=== PATIENT | male | born 1995 | race Caucasian/White ===

== ENCOUNTER 2019-01-18 08:37 | Emergency (ER) | payer BC ==
[2019-01-18] MEDS ORDERED: KETOROLAC 30 MG/ML INJ ONE (09:25)
[2019-01-18] MEDS ORDERED: ONDANSETRON 4 MG (ODT) TAB ONE (09:25)
--- NOTE | 2019-01-18 09:43 | ER ---
Nurse's Notes [facility] Name: Kiel Govea Age: 23 yrs Sex: Male : 1995 Arrival Date: 01/18/2019 Time: 08:40 Bed 7 Private MD: Diagnosis: Streptococcal pharyngitis;Vomiting, unspecified Presentation: 01/18 08:44 Presenting complaint: Patient states: i started having this abdominal cramps yesterday and i broke a fever of 101.3, went to a hospital in [place] and had blood works but it didn't show anything, now the pain is getting worse; reports N/V; reports diarrhea;. Transition of care: patient was not received from another setting of care. Onset of symptoms was January 18, 2019. Risk Assessment: Do you want to hurt yourself or someone else? Patient reports no desire to harm self or others. Initial Sepsis Screen: Does the patient meet any 2 criteria? No. Patient's initial sepsis screen is negative. Does the patient have a suspected source of infection? No. Patient's initial sepsis screen is negative. Care prior to arrival: None. 08:44 Method Of Arrival: Ambulatory 08:44 Acuity: NIKI 3 hj Triage Assessment: 08:46 General: Appears in no apparent distress. uncomfortable, Behavior is calm, cooperative, hj appropriate for age. Pain: Complains of pain in back and abdomen. GI: Reports diarrhea, nausea, vomiting. Historical: - Allergies: 08:46 No Known Allergies; hj - Home Meds: 08:46 None [Active]; hj - PMHx: 08:46 None; hj - PSHx: 08:46 None; hj - Immunization history:: Adult Immunizations not up to date. - Social history:: Smoking status: Patient uses tobacco products, Patient uses alcohol. - Ebola Screening: : Patient negative for fever greater than or equal to 101.5 degrees Fahrenheit, and additional compatible Ebola Virus Disease symptoms Patient denies exposure to infectious person Patient denies travel to an Ebola-affected area in the 21 days before illness onset. Screenin:46 Abuse screen: Denies threats or abuse. Denies injuries from another. Nutritional hj screening: No deficits noted. Tuberculosis screening: No symptoms or risk factors identified. Fall Risk None identified. Assessment: 08:47 GI: Bowel sounds present X 4 quads. hj 09:57 Reassessment: D/C ON HOLD FOR SHOT TIME. bp 10:08 Reassessment: PT D/C HOME AMBULATORY, DX WITH STREP THROAT. bp Vital Signs: 08:47 BP 135 / 73; Pulse 93; Resp 18; Temp 99.2(TE); Pulse Ox 95% on R/A; Weight 111.13 kg; bp Height 6 ft. 0 in. (182.88 cm); Pain 7/10; 09:58 BP 140 / 86; Pulse 87; Resp 16; Temp 99.1; Pulse Ox 94% ; bp 08:47 Body Mass Index 33.23 (111.13 kg, 182.88 cm) bp ED Course: 08:40 Patient arrived in ED. as 08:42 Eric Nayak, NICKIE is Primary Nurse. bp 08:43 Christina Dewitt FNP-C is PHCP. snw 08:43 Keshawn Hernandez MD is Attending Physician. snw 08:46 Triage completed. hj 08:46 Arm band placed on right wrist. hj 08:47 Patient has correct armband on for positive identification. Placed in gown. Bed in low hj position. Call light in reach. Side rails up X 1. 09:58 No provider procedures requiring assistance completed. Patient did not have IV access bp during this emergency room visit. Administered Medications: 09:10 Drug: Zofran 4 mg Route: PO; bp 09:47 Follow up: Response: Nausea is decreased bp 09:10 Drug: TORadol 30 mg Route: IM; Site: right deltoid; bp 09:47 Follow up: Response: Pain is decreased bp 09:57 Drug: Bicillin L-A 2.4 million units Route: IM; Site: right gluteus; bp 10:08 Follow up: Response: No adverse reaction bp Outcome: 09:42 Discharge ordered by MD. snw 10:08 Discharged to home ambulatory, with family. bp 10:08 Condition: stable 10:08 Discharge instructions given to patient, Instructed on discharge instructions, follow up and referral plans. Demonstrated understanding of instructions, follow-up care. 10:09 Patient left the ED. bp Signatures: Christina Dewitt FNP-C DIE INSPECTOR-Roxy Ross Henry, RN Eric Wolfe RN RN bp Corrections: (The following items were deleted from the chart) 08:49 08:47 Pulse 93bpm; Resp 18bpm; Pulse Ox 95% RA; Temp 99.2F Temporal; 111.13 kg; Height bp 6 ft. 0 in.; BMI: 33.2; Pain 7/10; xin
--- NOTE | 2019-01-18 09:44 | EDPHYS ---
Physician Documentation [facility] Name: Kiel Govea Age: 23 yrs Sex: Male : 1995 Arrival Date: 01/18/2019 Time: 08:40 Bed 7 Private MD: ED Physician Keshawn Hernandez HPI: 01/18 09:17 This 23 yrs old Male presents to ER via Ambulatory with complaints of snw Abdominal Cramping, Fever, Nausea. 09:18 The patient presents with abdominal pain that is diffuse. Onset: The symptoms/episode snw began/occurred gradually, 2 day(s) ago, and became persistent. The symptoms do not radiate. Associated signs and symptoms: Pertinent positives: nausea, vomiting, and diarrhea, fever. The symptoms are described as crampy. Severity of pain: At its worst the pain was moderate in the emergency department the pain is unchanged. It is unknown whether or not the patient has had similar symptoms in the past. The patient has been recently seen by a physician: [facility] yest, Labs WNL dx with stomach virus and given Zofran. Pt did not tile picker RX. Historical: - Allergies: 08:46 No Known Allergies; hj - Home Meds: 08:46 None [Active]; hj - PMHx: 08:46 None; hj - PSHx: 08:46 None; hj - Immunization history:: Adult Immunizations not up to date. - Social history:: Smoking status: Patient uses tobacco products, Patient uses alcohol. - Ebola Screening: : Patient negative for fever greater than or equal to 101.5 degrees Fahrenheit, and additional compatible Ebola Virus Disease symptoms Patient denies exposure to infectious person Patient denies travel to an Ebola-affected area in the 21 days before illness onset. ROS: 09:17 Eyes: Negative for injury, pain, redness, and discharge, ENT: Negative for injury, snw pain, and discharge, Neck: Negative for injury, pain, and swelling, Cardiovascular: Negative for chest pain, palpitations, and edema, Respiratory: Negative for shortness of breath, cough, wheezing, and pleuritic chest pain. 09:17 Back: Negative for injury and pain, : Negative for injury, bleeding, discharge, and swelling, MS/Extremity: Negative for injury and deformity, Skin: Negative for injury, rash, and discoloration, Neuro: Negative for headache, weakness, numbness, tingling, and seizure. 09:17 Constitutional: Positive for fever, malaise, poor PO intake. 09:17 Abdomen/GI: Positive for abdominal pain, nausea, vomiting, and diarrhea. Exam: 09:17 Constitutional: This is a well developed, well nourished patient who is awake, alert, snw and in no acute distress. Head/Face: Normocephalic, atraumatic. Eyes: Pupils equal round and reactive to light, extra-ocular motions intact. Lids and lashes normal. Conjunctiva and sclera are non-icteric and not injected. Cornea within normal limits. Periorbital areas with no swelling, redness, or edema. ENT: Nares patent. No nasal discharge, no septal abnormalities noted. Tympanic membranes are normal and external auditory canals are clear. Oropharynx with no redness, swelling, or masses, exudates, or evidence of obstruction, uvula midline. Mucous membranes moist. Neck: Trachea midline, no thyromegaly or masses palpated, and no cervical lymphadenopathy. Supple, full range of motion without nuchal rigidity, or vertebral point tenderness. No Meningismus. Chest/axilla: Normal chest wall appearance and motion. Nontender with no deformity. No lesions are appreciated. Cardiovascular: Regular rate and rhythm with a normal S1 and S2. No gallops, murmurs, or rubs. Normal PMI, no JVD. No pulse deficits. Respiratory: Lungs have equal breath sounds bilaterally, clear to auscultation and percussion. No rales, rhonchi or wheezes noted. No increased work of breathing, no retractions or nasal flaring. 09:17 Back: No spinal tenderness. No costovertebral tenderness. Full range of motion. Skin: Warm, dry with normal turgor. Normal color with no rashes, no lesions, and no evidence of cellulitis. MS/ Extremity: Pulses equal, no cyanosis. Neurovascular intact. Full, normal range of motion. Neuro: Awake and alert, GCS 15, oriented to person, place, time, and situation. Cranial nerves II-XII grossly intact. Motor strength 5/5 in all extremities. Sensory grossly intact. Cerebellar exam normal. Normal gait. 09:17 Abdomen/GI: Inspection: obese Bowel sounds: normal, Palpation: mild abdominal tenderness, moderate abdominal tenderness, in all quadrants. Vital Signs: 08:47 BP 135 / 73; Pulse 93; Resp 18; Temp 99.2(TE); Pulse Ox 95% on R/A; Weight 111.13 kg; bp Height 6 ft. 0 in. (182.88 cm); Pain 7/10; 09:58 BP 140 / 86; Pulse 87; Resp 16; Temp 99.1; Pulse Ox 94% ; bp 08:47 Body Mass Index 33.23 (111.13 kg, 182.88 cm) bp MDM: 08:52 Patient medically screened. snw 09:43 Data reviewed: vital signs, nurses notes. Data interpreted: Pulse oximetry: on room air snw is 95 %. Interpretation: acceptable. Counseling: I had a detailed discussion with the patient and/or guardian regarding: the historical points, exam findings, and any diagnostic results supporting the discharge/admit diagnosis, the presence of at least one elevated blood pressure reading (>120/80) during this emergency department visit, lab results, the need for outpatient follow up, to return to the emergency department if symptoms worsen or persist or if there are any questions or concerns that arise at home. Special discussion: Based on the patient's Hx, exam, and Dx evaluation, there is no indication for emergent surgery or inpatient Tx. It is understood by the patient/guardian that if the Sx's persist or worsen they need to return immediately for re-evaluation. Based on the history and exam findings, there is no indication for further emergent testing or inpatient evaluation. I discussed with the patient/guardian the need to see the primary care provider for further evaluation of the symptoms. 01/18 09:00 Order name: Strep; Complete Time: 09:41 snw Administered Medications: 09:10 Drug: Zofran 4 mg Route: PO; bp 09:47 Follow up: Response: Nausea is decreased bp 09:10 Drug: TORadol 30 mg Route: IM; Site: right deltoid; bp 09:47 Follow up: Response: Pain is decreased bp 09:57 Drug: Bicillin L-A 2.4 million units Route: IM; Site: right gluteus; bp 10:08 Follow up: Response: No adverse reaction bp Disposition: 10:57 Co-signature as Attending Physician, Keshawn Hernandez MD I agree with the assessment and kdr plan of care. Disposition: 01/18/19 09:42 Discharged to Home. Impression: Streptococcal pharyngitis, Vomiting, unspecified. - Condition is Stable. - Discharge Instructions: Strep Throat, Rehydration, Adult. - Work release form, Medication Reconciliation Form, Thank You Letter, Antibiotic Education, Prescription Opioid Use form. - Follow up: Emergency Department; When: As needed; Reason: Worsening of condition. Follow up: Private Physician; When: 1 week; Reason: Recheck today's complaints, Continuance of care, Re-evaluation by your physician. Signatures: Dispatcher [employer] EDMS Keshawn Hernandez MD MD kdr Therrien, Shelly, ADMINISTRATIVE SERVICES ASSISTANT-C ADMINISTRATIVE SERVICES ASSISTANT-Csnw Giovani Guerrero, RN RN Eric Guillen RN RN bp Corrections: (The following items were deleted from the chart) 10:09 09:42 01/18/2019 09:42 Discharged to Home. Impression: Streptococcal pharyngitis; bp Vomiting, unspecified. Condition is Stable. Forms are Medication Reconciliation Form, Thank You Letter, Antibiotic Education, Prescription Opioid Use. Follow up: Emergency Department; When: As needed; Reason: Worsening of condition. Follow up: Private Physician; When: 1 week; Reason: Recheck today's complaints, Continuance of care, Re-evaluation by your physician. snw
[2019-01-18] MEDS ORDERED: PEN G BENZ LA 2.4 MU/4 ML SYRINGE IM ONE (10:09)
[2019-01-18 10:23] VITALS: BP 140/86; TEMP 99.1; O2SAT 94
== END 2019-01-18 10:09 | disposition home or self-care (01) ==
LOC: ER 08:37
DX: J02.0 Streptococcal pharyngitis (principal); Z72.0 Tobacco use
CPT/HCPCS: 87081; 96372; 99283; J0561

== ENCOUNTER 2022-10-22 00:24 | Emergency (ER) | payer BC ==
--- OUTSIDE RECORDS SUMMARY | 2022-10-22 00:28 | XMS REPORT | Continuity of Care Document ---
:1995 Author Organization [facility] t Address [address] [place] [address] [place] [id number] Care Team Providers Name Role Phone PCP, PATIENT DOES NOT HAVE A Primary Care Physician Unavaila getachew De León Attending Clinician Unavailable Ny Cornell Attending Clinician [phone] Znehaa_S Attending Clinician Unavailable VICTORIA SOLIS Attending Clinician Unavailable Victoria Randolph Attending Clinician Renae Ya Attending Clinician Cole_Ysabel Attending Clinician Unavailable Genet Admitting Clinician Unavailable Zuniga_S Admitting Clinician Unavailable VICTORIA SOLIS Admitting Clinician Unavailable Kocresenciola_A Admitting Clinician Unavailable Payers Payer Name Policy Type Policy Number Effective Date Expiration Date S joanie [place] [id number] 2020 00:00:00 [place] DEIDRE/ BEHZAD 93 [facility] [id number] 2020 00:00:00 Problems Condition Condition Condition Status Onset Resolution Last Treating Co mments Source Name Details Category Date Date Treatment Clinician Date Pain of Pain of Problem Active [facility] right Right 8-22 Orthope shoulder Shoulder 00:00: dic joint Joint 00 Sports Medicin e Pain of Pain of Problem Active [place] right Right 8-15 da shoulder Shoulder 00:00: Medica l joint Joint 00 Group No known No known Disease Unive rs active active ity of problems problems [facility] Allergies, Adverse Reactions, Alerts Allergy Allergy Status Severity Reaction(s) Onset Inactive Treating Comm ents Source Name Type Date Date Clinician NO KNOWN Drug Active Univers ALLERGIE Class ity of S [facility] Social History Social Habit Start Date Stop Date Quantity Comments Source Exposure to Not sure [facility] SARS-CoV-2 (event) [facility] Sex Assigned At [birth year] [facility] 00:00:00 00:00:00 [facility] Branch Smoking Status Start Date Stop Date Source Former Smoker [facility] Never Smoker [facility] Unknown if ever smoked [facility] Medications Ordered Filled Start Stop Current Ordering Indication Dosage Frequency Signature Comments Components Source Medication Medication Date Date Medication? Clinician (SIG) Name Name dexamethaso dexamethaso No dexamethas [place] ne sodium ne sodium 8-15 one sodium da phosphate phosphate 10:42: phosphate Medical 10 mg/mL 10 mg/mL 00 10 mg/mL Xavier up injection injection injection solutionTak solutionTak solutionTa e 1 mL by e 1 mL by ke 1 mL by injection injection injection route. route. route. methylpredn methylpredn No methylpred [place] isolone isolone 8-15 nisolone da acetate 40 acetate 40 10:42: acetate 40 Medical mg/mL mg/mL 00 mg/mL Group suspension suspension suspension for for for injectionTa injectionTa injectionT ke 1 mL by ke 1 mL by mikki 1 mL injection injection by route. route. injection route. benzonatate 2020-06 Yes [id number] 100mg Take 1 Univers 100 mg 2-21 capsule by ity of capsule 00:00: mouth 3 [place] 00 (three) Medical times Branch daily as needed for Cough. oseltamivir 2020-06- No [id number] 75mg Take 1 Univers 75 mg 2-12 06- capsule by ity of capsule 00:00: 05:59 mouth 2 [place] 00 :00 (two) Medical times Branch daily for 5 days. acetaminoph 2020-06- No 1{tbl} 1 tablet, Univers en-codeine 0-26 10-26 Oral, ity of (TYLENOL 01:00: 00:47 ONCE, 1 [place] #3) 300-30 00 :00 dose, On Medic al mg tablet 1 Mon Branch tablet 04/16/21 at 1999, RANDY azithromyci 2020-06 Yes [id number] Take 500 Univers n 250 mg 0-25 mg day 1, ity of tablet 00:00: then 250 [place] 00 mg days 2 Medical to 5. Branch albuterol 2020-06 Yes [id number] 2{puff} Inhale 2 Univers 90 0-25 Puffs ity of mcg/actuati 00:00: every 4 Oswaldo as on inhaler 00 (four) Medical hours as Branch needed for Wheezing or Shortness of Breath. azithromyci 2020-06 Yes [id number] Take 500 Univers n 250 mg 0-25 mg day 1, ity of tablet 00:00: then 250 [place] 00 mg days 2 Medical to 5. Branch albuterol 2020-06 Yes [id number] 2{puff} Inhale 2 Univers 90 0-25 Puffs ity of mcg/actuati 00:00: every 4 Oswaldo as on inhaler 00 (four) Medical hours as Branch needed for Wheezing or Shortness of Breath. acetaminoph 2020-06- No [id number] 1{tbl} Take 1 U nivers en-codeine 0-25 11-02 tablet by ity of 300-30 mg 00:00: 04:59 mouth [place] tablet 00 :00 every 6 Medical (six) Branch hours as needed for Pain (scale 7-10) for up to 7 days. Indication s: acute pain loperamide 2020- No 4mg 4 mg, Unive rs (IMODIUM -12 07-12 Oral, ONCE ity of A-D) 18:45: 17:44 NOW, 1 [place] capsule 4 00 :00 dose, Mon Medic al mg 01/01/21 at Branch 1345, RANDY NaCl 0.9% 2020- No 2000mL at 999 Uni vers (NS) bolus 01-01 07-12 mL/hr, ity of infusion 16:45: 19:52 2,000 mL, Oswaldo as 2,000 mL 00 :00 IV Medical Infusion, Branch ONCE, 1 dose, 01/01/21 at 1145, RANDY dicyclomine 2020-0 Yes [id number] 20mg Take 1 Univers 20 mg 7-12 tablet by ity of tablet 00:00: mouth 4 [place] 00 (four) Medical times Branch daily as needed for Abdominal pain. ondansetron 0 Yes [id number] 4mg Take 1 Univers (ZOFRAN 7-12 tablet by ity of ODT) 4 mg 00:00: mouth [place] disintegrat 00 every 8 Medic al ing tablet (eight) Branch hours as needed for Nausea and Vomiting (N/V). dicyclomine 0 Yes [id number] 20mg Take 1 Univers 20 mg 7-12 tablet by ity of tablet 00:00: mouth 4 [place] 00 (four) Medical times Branch daily as needed for Abdominal pain. ondansetron 0 Yes [id number] 4mg Take 1 Univers (ZOFRAN 7-12 tablet by ity of ODT) 4 mg 00:00: mouth [place] disintegrat 00 every 8 Medic al ing tablet (eight) Branch hours as needed for Nausea and Vomiting (N/V). dicyclomine 0 Yes [id number] 20mg Take 1 Univers 20 mg 7-12 tablet by ity of tablet 00:00: mouth 4 [place] 00 (four) Medical times Branch daily as needed for Abdominal pain. ondansetron 2020-0 Yes [id number] 4mg Take 1 Univers (ZOFRAN 7-12 tablet by ity of ODT) 4 mg 00:00: mouth [place] disintegrat 00 every 8 Medic al ing tablet (eight) Branch hours as needed for Nausea and Vomiting (N/V). cyclobenzap cyclobenzap No 1 TID cyclobenza [place] rine 10 mg rine 10 mg kamilah 10 da tablet Take tablet Take mg tablet Medical 1 tablet 3 1 tablet 3 Take 1 G roup times a day times a day tablet 3 by oral by oral times a route as route as day by needed. needed. oral route as needed. dexamethaso dexamethaso No 1mL dexamethas [place] ne sodium ne sodium one sodium da phosphate phosphate phosphate Medical 10 mg/mL 10 mg/mL 10 mg/mL Xavier up injection injection injection solution solution solution Take 1 mL Take 1 mL Take 1 mL by by by injection injection injection route. route. route. diclofenac diclofenac No 1 BID diclofenac [place] sodium 75 sodium 75 sodium 75 da mg mg mg Medical tablet,randal tablet,randal tablet,del Group yed release yed release ayed Take 1 Take 1 release tablet tablet Take 1 twice a day twice a day tablet by oral by oral twice a route for route for day by 10 days. 10 days. oral route for 10 days. lisinopril lisinopril No 2 Q1D lisinopril [place] 5 mg tablet 5 mg tablet 5 mg d a Take 2 Take 2 tablet Medical tablets tablets Take 2 Group every day every day tablets by oral by oral every day route. route. by oral route. metformin metformin No 1 BID metformin [place] 500 mg 500 mg 500 mg da tablet Take tablet Take tablet Medical 1 tablet 1 tablet Take 1 Group twice a day twice a day tablet by oral by oral twice a route. route. day by oral route. methylpredn methylpredn No 1mL methylpred [place] isolone isolone nisolone da acetate 40 acetate 40 acetate 40 Medical mg/mL mg/mL mg/mL Group suspension suspension suspension for for for injection injection injection Take 1 mL Take 1 mL Take 1 mL by by by injection injection injection route. route. route. tramadol 50 tramadol 50 No 1 Q6H tramadol [place] mg tablet mg tablet 50 mg da Take 1 Take 1 tablet Medical tablet tablet Take 1 Group every 6 every 6 tablet hours by hours by every 6 oral route oral route hours by as needed. as needed. oral route as needed. cyclobenzap cyclobenzap No cyclobenza [facility]yla rine 10 mg rine 10 mg kamilah 10 Orthope tablet tablet mg tablet dic Sports Medicin e diclofenac diclofenac No diclofenac Twyla sodium 75 sodium 75 sodium 75 Orthope mg mg mg dic tablet,randal tablet,randal tablet,del Sports yed release yed release ayed M edicin release e tramadol 50 tramadol 50 No tramadol Twyla mg tablet mg tablet 50 mg Orth ope tablet dic Sports Medicin e Immunizations Ordered Filled Immunization Date Status Comments Sourc e Immunization Name Name DT 1996-03-29 Completed University of 00:00:00 [facility] Hep B, Adol or Pedi 1996-03-29 Completed Unive rsity of Dosage 00:00:00 [facility] Polio (IPV/OPV) 1996-03-29 Completed Universit y of 00:00:00 [facility] DTAP 1996-03-29 Completed University of 00:00:00 [facility] Hep B, Adol or Pedi 1996-03-29 Completed Unive rsity of Dosage 00:00:00 [facility] Polio (IPV/OPV) 1996-03-29 Completed Universit y of 00:00:00 [facility] DTAP 1996-03-29 Completed University of 00:00:00 [facility] Hep B, Adol or Pedi 1996-03-29 Completed Unive rsity of Dosage 00:00:00 [facility] Polio (IPV/OPV) 1996-03-29 Completed Universit y of 00:00:00 [facility] DTP 1994-09-19 Completed University of 00:00:00 [facility] Hep B, Adol or Pedi 1994-09-19 Completed Unive rsity of Dosage 00:00:00 [facility] HIB 4 Dose Schedule 1994-09-19 Completed Unive rsity of 00:00:00 [facility] Polio (IPV/OPV) 1994-09-19 Completed Universit y of 00:00:00 [facility] DTP 1994-09-19 Completed University of 00:00:00 [facility] Hep B, Adol or Pedi 1994-09-19 Completed Unive rsity of Dosage 00:00:00 [facility] HIB 4 Dose Schedule 1994-09-19 Completed Unive rsity of 00:00:00 [facility] Polio (IPV/OPV) 1994-09-19 Completed Universit y of 00:00:00 [facility] DTP 1994-09-19 Completed University of 00:00:00 [facility] Hep B, Adol or Pedi 1994-09-19 Completed Unive rsity of Dosage 00:00:00 [facility] HIB 4 Dose Schedule 1994-09-19 Completed Unive rsity of 00:00:00 [facility] Polio (IPV/OPV) 1994-09-19 Completed Universit y of 00:00:00 [facility] PPD (TB) 1994-06-07 Completed University of 00:00:00 [facility] [place] [facility] Branch MMR 1994-06-07 Completed University of 00:00:00 [facility] PPD (TB) 1994-06-07 Completed University of 00:00:00 [facility] MMR 1994-06-07 Completed University of 00:00:00 [facility] PPD (TB) 1994-06-07 Completed University of 00:00:00 [facility] MMR 1994-06-07 Completed University of 00:00:00 [facility] DTP 1994-02-14 Completed University of 00:00:00 [facility] HIB 4 Dose Schedule 1994-02-14 Completed Unive rsity of 00:00:00 [facility] DTP 1994-02-14 Completed University of 00:00:00 [facility] HIB 4 Dose Schedule 1994-02-14 Completed Unive rsity of 00:00:00 [facility] DTP 1994-02-14 Completed University of 00:00:00 [facility] HIB 4 Dose Schedule 1994-02-14 Completed Unive rsity of 00:00:00 [facility] Polio (IPV/OPV) 1993 Completed Universit y of 00:00:00 [facility] DTP 1993 Completed University of 00:00:00 [facility] HIB 4 Dose Schedule 1993 Completed Unive rsity of 00:00:00 [facility] Polio (IPV/OPV) 1993 Completed Universit y of 00:00:00 [facility] DTP 1993 Completed University of 00:00:00 [facility] HIB 4 Dose Schedule 1993 Completed Unive rsity of 00:00:00 [facility] Polio (IPV/OPV) 1993 Completed Universit y of 00:00:00 [facility] DTP 1993 Completed University of 00:00:00 [facility] HIB 4 Dose Schedule 1993 Completed Unive rsity of 00:00:00 [facility] Hep B, Adol or Pedi 1993 Completed Unive rsity of Dosage 00:00:00 [facility] Hep B, Adol or Pedi 1993 Completed Unive rsity of Dosage 00:00:00 [facility] Hep B, Adol or Pedi 1993 Completed Unive rsity of Dosage 00:00:00 [facility] Vital Signs Vital Name Observation Time Observation Value Comments Source Height 2022-02-12 00:00:00 72 [in_i] [facility] BMI (Body Mass 2022-02-12 00:00:00 31.2 kg/m2 [facility]) Sports Medicine Body Weight 2022-02-12 00:00:00 230 [lb_av] [facility] BP Diastolic 2022-02-04 00:00:00 78 mm[Hg] [facility] Height 2022-02-04 00:00:00 72 [in_i] [facility] BMI (Body Mass 2022-02-04 00:00:00 32.4 [facility]2 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 BP Systolic 2022-02-04 00:00:00 122 mm[Hg] [facility] Body Weight 2022-02-04 00:00:00 3824 [oz_av] [facility] Systolic blood 2021-06-13 03:00:00 135 mm[Hg] Univer sity of pressure [facility] Diastolic blood 2021-06-13 03:00:00 87 mm[Hg] Unive rsity of pressure [facility] Body temperature 2021-06-13 03:00:00 37.22 Michell [facility] Respiratory rate 2021-06-13 03:00:00 19 /min Univ [facility] Oxygen saturation in 2021-06-13 03:00:00 98 /min [facility] Arterial blood by [facility] Pulse oximetry Branch Heart rate 2021-06-13 02:41:00 118 /min [facility] Body height 2021-06-13 02:41:00 182.9 cm [facility] Body weight 2021-06-13 02:41:00 102.649 kg [facility] BMI 2021-06-13 02:41:00 30.69 kg/m2 [facility] [place] [facility] Systolic blood 2021-04-16 23:35:00 147 mm[Hg] Univer sity of pressure [place] [facility] Diastolic blood 2021-04-16 23:35:00 86 mm[Hg] Unive rsity of pressure [place] [facility] Heart rate 2021-04-16 23:35:00 103 /min [facility] [place] [facility] Body temperature 2021-04-16 23:35:00 37.33 Michell [facility] [place] [facility] Respiratory rate 2021-04-16 23:35:00 18 /min Univ [facility] [place] [facility] Body height 2021-04-16 23:35:00 195.6 cm [facility] [place] [facility] Body weight 2021-04-16 23:35:00 104.327 kg [facility] [place] [facility] BMI 2021-04-16 23:35:00 27.27 kg/m2 Universi ty of [facility] Oxygen saturation in 2021-04-16 23:35:00 99 /min University of Arterial blood by [place] [employer] [facility]on Pulse oximetry Branch Systolic blood 2021-01-01 18:00:00 146 mm[Hg] Univer sity of pressure [place] [facility] Diastolic blood 2021-01-01 18:00:00 89 mm[Hg] Unive rsity of pressure [place] [facility] Heart rate 2021-01-01 18:00:00 86 /min [facility] [place] [facility] Respiratory rate 2021-01-01 18:00:00 28 /min Univ [facility] [place] [facility] [place] Oxygen saturation in 2021-01-01 18:00:00 95 /min University of Arterial blood by [place] [employer] javon Pulse oximetry Branch Body temperature 2021-01-01 16:32:05 37.17 Michell [facility] [place] [facility] Body height 2021-01-01 16:29:00 180.3 cm [facility] [place] [facility] Body weight 2021-01-01 16:29:00 107.956 kg [facility] [place] [facility] BMI 2021-01-01 16:29:00 33.19 kg/m2 [facility] [place] [facility] [place] Body Weight 2020-09-15 00:00:00 3856 [oz_av] [facility] BP Diastolic 2020-09-15 00:00:00 105 mm[Hg] [facility] Height 2020-09-15 00:00:00 72 [in_i] [facility] BMI (Body Mass 2020-09-15 00:00:00 32.7 kg/m2 [facility] 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) Group BP Systolic 2020-09-15 00:00:00 172 mm[Hg] [facility] Procedures Procedure Date / Time Performed Performing Clinician Sourc e MRI, shoulder, w/o 2022-02-12 00:00:00 Twyla Or thopedic contrast Sports Medicine XR, shoulder, 2 or 2022-02-04 00:00:00 [facility] XR CHEST 2 VW 2021-06-13 03:18:10 Victoria Solis [facility] [facility] RAPID INFLUENZA A/B 2021-06-13 03:00:00 Victoria Solis [facility] COVID-19 (ID NOW RAPID 2021-06-13 03:00:00 Victoria Solis [facility] TESTING) Medical Branch NOTICE OF PRIVACY 2021-06-13 02:26:52 Doctor Unassigned, No Univ [facility] PRACTICES Name Medical Branch CONSENT/REFUSAL FOR 2021-06-13 02:25:07 Doctor Unassigned, No [facility] [place] DIAGNOSIS AND Name Medical Branch TREATMENT COVID-19 (ID NOW RAPID 2021-04-17 01:13:00 Victoria Solis [facility] TESTING) Medical Branch XR CHEST 2 VW 2021-04-17 00:10:40 Victoria Solis [facility] XR RIBS 3 VW LEFT 2021-04-17 00:10:40 Victoria Solis [facility] NOTICE OF PRIVACY 2021-04-16 23:29:08 Doctor Unassigned, No Univ [facility] PRACTICES Name Medical Branch CONSENT/REFUSAL FOR 2021-04-16 23:28:45 Doctor Unassigned, No [facility] [place] DIAGNOSIS AND Name Medical Branch TREATMENT XR ABDOMEN ACUTE 2021-01-01 18:38:28 Renae Romero [facility] SERIES Medical Branch URINALYSIS 2021-01-01 17:09:00 Renae Romero [facility] LIPASE 2021-01-01 16:45:00 Nick [facility] HEPATIC FUNCTION PANEL 2021-01-01 16:45:00 RomeroRenae maurice [facility] ([id number]) Medical Branch (ALB,T.PRO,BILI T,BU/BC,ALT,AST,ALK PHOS) BASIC METABOLIC PANEL 2021-01-01 16:45:00 RomeroRenae maurice [facility] (NA, K, CL, CO2, Medical Branch GLUCOSE, BUN, CREATININE, CA) CBC WITH DIFF 2021-01-01 16:45:00 Renae Romero [facility] NOTICE OF PRIVACY 2021-01-01 16:19:45 Doctor Unassigned, No [facility] PRACTICES Name [facility] CONSENT/REFUSAL FOR 2021-01-01 16:17:52 Doctor Unassigned, No [facility] DIAGNOSIS AND Name Medical Branch TREATMENT Encounters Start End Encounter Admission Attending Care Care Encounter Source Date/Time Date/Time Type Type Clinicians Facility Department ID 2022-02-12 2022-02-12 Outpatient FOG_Burke_R AOSM AOSM [id number] Twyla 00:00:00 00:00:00 Matthew [id number] Ortho pe dic Sports Medicin e 2022-02-12 2022-02-12 Outpatient GENEVA Cornell AOSM [id number] 00:00:00 00:00:00 Ny H [id number] 2022-02-12 2022-02-12 Ny H AOSM [place] - Ortho Twyla 00:00:00 00:00:00 Leanne Cornell [place] PA: [id number] FOG_Ofc dic [facility] [address], Medici n [address], [place] [address] , Ph. 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 2021-06-12 2021-06-12 Emergency X [facility] ERT [id number] Univers 20:43:00 21:47:00 VICTORIA [facility] 2021-06-12 2021-06-12 Emergency [facility] [id number] Univers 20:43:00 21:47:00 Victoria HARRIS [id number] i ty of [place] [id number] [facility] [id number] [address] 2021-04-16 2021-04-16 Emergency X [facility] ERT [id number] Univers 18:37:00 22:30:00 VICTORIA [facility] 2021-04-16 2021-04-16 Emergency [facility] [id number] Univers 18:37:00 22:30:00 Victoria Harris [id number] i ty of [place] [id number] [facility] [id number] [address] 2021-01-01 2021-01-01 Emergency [facility] [id number] Univers 11:30:00 14:53:00 Renae Harris [id number] i ty of [place] [id number] [facility] [id number] [place] [address] Branch 2021-01-01 2021-01-01 Emergency X [facility] ERT [id number] Univers 11:14:00 11:14:00 ity [facility] 2020-09-15 2020-09-15 Outpatient Koudela_A [facility] [id number] [place] 08:18:00 08:18:00 [id number] [facility] 2020-09-15 2020-09-15 Outpatient Koudela_A [facility] [id number] [place] 08:18:00 08:18:00 [id number] [facility] 2020-09-15 2020-09-15 Sara [facility] [place] - [id number] M atagor 00:00:00 00:00:00 Cole Discovery da PA-C: [facility] [place] [address], [place] [address] , Ph. Results Test Description Test Time Test Comments Results Result [facility] e Comments Acute Abdomen 2020-12-21 Mildly dilated short University of Series 2 segment of small [place] dical 19:11:32 bowel without Branch transition point likelysequela of diarrhea. No bowel obstruction. Clear lungs. EXAM: XR ABDOMEN ACUTE SERIES 01/01/2021 1:25 PM COMPARISON: None available. HISTORY: subjective fever, diarrhea FINDINGS:Moderate ventilated lungs. No consolidation. No pleural effusions orpneumothorax. The cardiomediastinal silhouette is within normal limits. Nonobstructive bowel gas pattern. A loop of small bowel is gas-filled anddilated in the left hemiabdomen measuring 3.9 cm in diameter. No transitionpoint. The large bowel contains scattered gas. Phlebolith is noted in theleft hemipelvis. No acute osseous abnormality. [facility], Radiant Results Inft User - 01/01/2021 2:12 PM CDT EXAM: XR ABDOMEN ACUTE SERIES 01/01/2021 1:25 PMCOMPARISON: None available.HISTORY: subjective fever, diarrhea FINDINGS:Moderate ventilated lungs. No consolidation. No pleural effusions orpneumothorax. The cardiomediastinal silhouette is within normal limits.Nonobstructive bowel gas pattern. A loop of small bowel is gas-filled anddilated in the left hemiabdomen measuring 3.9 cm in diameter. No transitionpoint. The large bowel contains scattered gas. Phlebolith is noted in theleft hemipelvis.No acute osseous abnormality.IMPRESSIO NMildly dilated short segment of small bowel without transition point likelysequela of diarrhea. No bowel obstruction.Clear lungs. Urinalysis 2021-01-01 17:26:10 Test Item Value Reference Range Interpretation Comme nts APPEARANCE (test code = Clear Clear 2428442643) COLOR (test code = 5993431106) Yellow Yellow PH (test code = 6530746025) 4.8-8.0 SP GRAVITY (test code = 1.003-1.030 H 9620086153) GLU U QUAL (test code = 150 mg/dL Normal A 5972828068) BLOOD (test code = 5056689124) Negative Negative KETONES (test code = 1889168918) 5 mg/dL Negative A PROTEIN (test code = 2887-8) Negative Negative UROBILIN (test code = 2.0 mg/dL Normal A 3486091139) BILIRUBIN (test code = Negative Negative 6955978820) NITRITE (test code = 1210212272) Negative Negative LEUK SHANNON (test code = Negative Negative 7646115867) RBC/HPF (test code = 5500933946) See_Comment [Automated message] The system which ge nerated this result transmit rafy reference range: 0 - 3 HP F. The reference range was not used to interpret th is result as normal/abnormal . WBC/HPF (test code = 0017299466) See_Comment [Automated message] The system which [employer] nerated this result transmit rafy reference range: 0 - 5 HP F. The reference range was not used to interpret th is result as normal/abnormal . BACTERIA (test code = Negative Negative 7173392843) MUCOUS (test code = 6681112359) Slight Negative LPF A Lab Interpretation (test code = Abnormal 20380-3) [facility] (ALB, T.PRO, BILI T, BU/BC, ALT, AST, ALK PHOS)2021-01-01 17:16:40 Test Item Value Reference Range Interpretation Comments TOTAL BILI (test code = 0070903885) 0.7 mg/dL 0.1-1.1 BILI UNCON (test code = 8299870471) 0.4 mg/dL 0.1-1.1 BILI CONJ (test code = 7012455740) 0.0 mg/dL 0.0-0.3 T PROTEIN (test code = 8239778217) 8.0 g/dL 6.3-8.2 ALBUMIN (test code = 4486405860) 4.7 g/dL 3.5-5.0 ALK PHOS (test code = 5278935681) 127 U/L 34-122 H ALTv (test code = 1742-6) 122 U/L 5-50 H AST(SGOT) (test code = 1497841630) 58 U/L 13-40 H Lab Interpretation (test code = Abnormal 01626-5) [facility] Metabolic Panel (NA, K, CL, CO2, GLUCOSE, BUN, CREATININE, CA)2021-01-01 17:16:22 Test Item Value Reference Range Interpretation Comments NA (test code = 135 mmol/L 135-145 0271251247) K (test code = 3.8 mmol/L 3.5-5.0 2955387086) CL (test code = 102 mmol/L 98-108 9505007822) CO2 TOTAL (test code = 21 mmol/L 23-31 L 1460424380) AGAP (test code = 2-16 1818367659) BUN (test code = 18 mg/dL 7-23 1202856282) GLUCOSE (test code = 231 mg/dL 70-110 H 7796275004) CREATININE (test code = 0.69 mg/dL 0.60-1.25 9902072619) CALCIUM (test code = 8.8 mg/dL 8.6-10.6 1144768281) eGFR (test code = mL/min/1.73m2 1342653510) ALESSANDRA (test code = ALESSANDRA) Association of Glomerular Filtration Rate (GFR) and Staging of Kidney Disease* + --+ --+ ------+| GFR (mL/min/1.73 m2) ?| With Kidney Damage ?| ?Without Kidney Damage+ --------+ --------+ +| ?>90 ?| ?Stage one ?| ? Normal ?+ ---+ ---+ -------+| ?60-89 ?| ?Stage two ?| ? Decreased GFR ? + --+ --+ ------+| ?30-59 ?| ?Stage three ?| ? Stage three ? + --+ --+ ------+| ?15-29 ?| ?Stage four ? | ? Stage four ?+ ---+ ---+ -------+| ?<15 (or dialysis) ? ?| ?Stage five ? | ? Stage five ?+ ---+ ---+ -------+ *Each stage assumes the associated GFR level has been in effect for at least three months. ?Stages 1 to 5, with or without kidney disease, indicate chronic kidney disease. Notes: Determination of stages one and two (with eGFR >59mL/min/1.73 m2) requires estimation of kidney damage for at least three months as defined by structural or functional abnormalities of the kidney, manifested by either:Pathological abnormalities or Markers of kidney damage (including abnormalities in the composition of the blood or urine or abnormalities in imaging tests). Lab Interpretation Abnormal (test code = 73155-2) [facility] [id number]:16:22 Test Item Value Reference Range Interpretation Comments LIPASE (test code = 9274424059) 51 U/L 0-220 Lab Interpretation (test code = Normal 55320-4) [facility] [id number] 17:00:57 Test Item Value Reference Range Interpretation Comments WBC (test code = See_Comment [Automated 6019-2) message] The sy stem which generated this result transmitted reference range : 4.20 - 10.70 10*3/?L. The reference range was not used to interpret this result as normal/abnormal . RBC (test code = See_Comment [Automated 234-8) message] The sy stem which generated this result transmitted reference range : 4.26 - 5.52 10*6/?L. The reference range was not used to interpret this result as normal/abnormal . HGB (test code = 15.7 g/dL 12.2-16.4 718-7) HCT (test code = 46.4 % 38.4-49.3 4544-3) MCV (test code = 91.5 fL 81.7-95.6 787-2) MCH (test code = 31.0 pg 26.1-32.7 785-6) MCHC (test code = 33.8 g/dL 31.2-35.0 786-4) RDW-SD (test code = 41.8 fL 38.5-51.6 87106-4) RDW-CV (test code = 12.5 % 12.1-15.4 788-0) PLT (test code = See_Comment [Automated 777-3) message] The sy stem which generated this result transmitted reference range : 150 - 328 10*3/ ?L. The reference r kiara was not used to interpret this result as normal/abnormal . MPV (test code = 9.9 fL 9.8-13.0 37078-3) NRBC/100 WBC (test See_Comment [Automat ed code = 8803506962) message] The system which generated this result transmitted reference range : 0.0 - 10.0 /100 WBCs. The refer ence range was not u sed to interpret th is result as normal/abnormal . NRBC x10^3 (test code <0.01 See_Comment [Auto mated = 5505133589) message] The s ystem which generated this result transmitted reference range : 10*3/?L. The reference range was not used to interpret this result as normal/abnormal . GRAN MAT (NEUT) % 70.1 % (test code = 770-8) IMM GRAN % (test code 0.30 % = 8968218222) LYMPH % (test code = 19.6 % 736-9) MONO % (test code = 8.9 % 5905-5) EOS % (test code = 0.8 % 713-8) BASO % (test code = 0.3 % 706-2) GRAN MAT x10^3(ANC) 4.55 10*3/uL 1.99-6.95 (test code = 4330806815) IMM GRAN x10^3 (test <0.03 0.00-0.06 code = 6204492341) LYMPH x10^3 (test code 1.27 10*3/uL 1.09-3.23 = 731-0) MONO x10^3 (test code 0.58 10*3/uL 0.36-1.02 = 742-7) EOS x10^3 (test code = 0.05 10*3/uL 0.06-0.53 L 711-2) BASO x10^3 (test code <0.03 0.01-0.09 = 704-7) Lab Interpretation Abnormal (test code = 99537-8) [facility]"
[2022-10-22 01:19] LABS: Absolute Lymphocytes (CBC) 4.1 K/uL (0.7-4.9); Hematocrit 43.6 % (39.6-49.0); Lymphocytes % 54.8 % (15.3-44.8); MCV 92.7 fL (80-100); MPV 8.1 fL (7.6-11.3); RBC Red Blood Cell Count 4.71 M/uL (4.33-5.43)
[2022-10-22 01:45] LABS: Albumin 3.5 g/dL (3.4-5.0); Bilirubin Total 0.3 mg/dL (0.2-1.0); Potassium 3.7 mEq/L (3.5-5.1); Protein, Total 7.2 g/dL (6.4-8.2)
[2022-10-22 02:41] LABS: Specific Gravity > 1.030 (1.005-1.030); Urine Bilirubin NEGATIVE (Negative); Urine Blood Negative (Negative); Urine Clarity Clear (Clear); Urine Color Colorless (Yellow); Urine Glucose 4+ (Over) (Negative); Urine Protein NEGATIVE (Negative); Urine Urobilinogen Normal (Normal)
[2022-10-22] MEDS ORDERED: NA CHLORIDE 0.9% 1,000 ML ONE (03:19)
--- NOTE | 2022-10-22 03:55 | EDPHYS ---
Physician Documentation [facility] Name: Kiel Govea Age: 27 yrs Sex: Male : 1995 Arrival Date: 10/22/2022 Time: 00:24 Bed 18 Private MD: ED Physician Ryan Medina HPI: 10/22 00:53 This 27 yrs old Male presents to ER via Ambulatory with complaints of jmm Abdominal Pain. 00:53 The patient presents with abdominal pain. Onset: The symptoms/episode began/occurred jmm gradually, this morning. The symptoms do not radiate. Associated signs and symptoms: Pertinent negatives: nausea, vomiting, and diarrhea, testicular pain, vomiting. This is a 27 year old male with a history of htn, that presents to the ED with complaints of lower abdominal pain beginning this morning. Denies vomiting, diarrhea, decreased appetite. Denies regular alcohol use. . Historical: - Allergies: 00:48 No Known Allergies; kb3 - Home Meds: 00:48 None [Active]; kb3 - PMHx: 00:48 Hypertensive disorder; NIDDM; kb3 - PSHx: 00:48 None; kb3 - Immunization history:: Adult Immunizations up to date, Client reports receiving the 1st dose of the Covid vaccine, Last tetanus immunization: < 10 years ago. - Social history:: Smoking status: Patient reports the use of cigarette tobacco products, denies chronic smoking, but will smoke occasionally, Patient uses alcohol, occasionally. Patient/guardian denies using street drugs. ROS: 00:53 Constitutional: Negative for fever, chills, and weight loss, Cardiovascular: Negative jmm for chest pain, palpitations, and edema, Respiratory: Negative for shortness of breath, cough, wheezing, and pleuritic chest pain. 00:53 Abdomen/GI: Positive for abdominal pain. 00:53 All other systems are negative. Exam: 00:53 Constitutional: This is a well developed, well nourished patient who is awake, alert, jmm and in no acute distress. Head/Face: atraumatic. Eyes: EOMI, no conjunctival erythema appreciated ENT: Moist Mucus Membranes Neck: Trachea midline, Supple Chest/axilla: Normal chest wall appearance and motion. Cardiovascular: Regular rate and rhythm. No edema appreciated Respiratory: Normal respirations, no respiratory distress appreciated 00:53 Back: Normal ROM Skin: General appearance color normal MS/ Extremity: Moves all extremities, no obvious deformities appreciated, no edema noted to the lower extremities Neuro: Awake and alert Psych: Behavior is normal, Mood is normal, Patient is cooperative and pleasant 00:53 Abdomen/GI: Inspection: abdomen appears normal, Bowel sounds: normal, Palpation: soft, mild abdominal tenderness, in the right lower quadrant and left lower quadrant. Vital Signs: 00:46 BP 160 / 107; Pulse 89; Resp 18; Temp 97.8; Pulse Ox 98% ; Weight 98.43 kg; Height 6 kb3 ft. 0 in. ; Pain 7/10; 01:00 BP 137 / 81; Pulse 74; Resp 18 S; Pulse Ox 97% on R/A; ha1 02:00 BP 149 / 84; Pulse 73; Resp 15 S; Pulse Ox 96% on R/A; ha1 03:00 BP 127 / 69; Pulse 70; Resp 18 S; Pulse Ox 96% on R/A; ha1 04:00 BP 107 / 62; Pulse 72; Resp 18; Pulse Ox 96% on R/A; ha1 00:46 Body Mass Index 29.43 (98.43 kg, 182.88 cm) kb3 00:46 Pain Scale: Adult kb3 MDM: 00:[address] [facility] 00:59 Differential diagnosis: appendicitis, non-specific abd pain, pancreatitis, Prostatitis, [facility] Pyelonephritis. Data reviewed: vital signs, nurses notes, lab test result(s). 01:40 Transition of care: After a detail discussion of the patient's case, care is [facility] transferred to Ryan Medina MD. 10/22 00:53 Order name: CBC with Diff; Complete Time: 01:23 [facility] 10/22 00:53 Order name: CMP; Complete Time: 02:41 [facility] 10/22 00:53 Order name: Lipase; Complete Time: 02:41 [facility] 10/22 00:53 Order name: Urinalysis w/ reflexes; Complete Time: 02:42 [facility] 10/22 00:53 Order name: CT Abd/Pelvis - IV Contrast Only; Complete Time: 16:03 [facility] 10/22 00:53 Order name: IV Saline Lock; Complete Time: 01:15 [facility] 10/22 00:53 Order name: Labs collected and sent; Complete Time: 01:15 [facility] Administered Medications: 02:50 Drug: NS 0.9% IV 1000 ml Route: IV; Rate: 1 bolus; Site: right antecubital; ha1 04:25 Follow up: Response: No adverse reaction; IV Status: Completed infusion; IV Intake: ha1 1000ml Disposition: 04:04 Co-signature as Attending Physician, Ryan Medina MD I reviewed the patient's care rt provided by Advanced Practice Provider \T\ agree w/ the diagnosis \T\ care plan. I personally saw the pt \T\ performed a substantive portion of the visit, incldng all aspects of the (History/Exam/Medical Decision Making). PA/GANG RIDER's history reviewed, patient interviewed, and examined. HPI: Patient does report of pain with deep inspiration, reports a generalized malaise to me. My personal exam of patient reveals: No acute respiratory distress on examination I agree with assessment and care plan and confirm the diagnosis (es) above. Disposition Summary: 10/22/22 03:54 Discharge Ordered Location: Home rt Problem: new rt Symptoms: have improved rt Condition: Stable rt Diagnosis - Unspecified bacterial pneumonia rt - Type 2 diabetes mellitus with hyperglycemia rt - Other abdominal pain rt Followup: rt - With: Private Physician - When: 2 - 3 days - Reason: Discharge Instructions: - Discharge Summary Sheet rt - Abdominal Pain, Adult rt - Hyperglycemia rt - Community-Acquired Pneumonia, Adult rt Forms: - Work release form ha1 - Medication Reconciliation Form rt - Thank You Letter rt - Antibiotic Education rt - Prescription Opioid Use rt Prescriptions: - Augmentin 875-125 mg Oral Tablet - take 1 tablet by ORAL route every 12 hours for 10 days; 20 tablet; Refills: 0, rt Product Selection Permitted - Metformin 500 mg Oral Tablet - take 1 tablet by ORAL route every 12 hours take 1 tablet with morning meals AND rt evening meals; 60 tablet; Refills: 0, Product Selection Permitted Signatures: Dispatcher [employer] Amandeep Retana PA PA jmm Ayala, Heidy RN RN ha1 Marielos Estrada RN RN kb3 Ryan Medina MD MD rt
--- NOTE | 2022-10-22 03:55 | ER ---
Nurse's Notes [facility] Name: Kiel Govea Age: 27 yrs Sex: Male : 1995 Arrival Date: 10/22/2022 Time: 00:24 Bed 18 Private MD: Diagnosis: Unspecified bacterial pneumonia;Type 2 diabetes mellitus with hyperglycemia;Other abdominal pain Presentation: 10/22 00:46 Chief complaint: Patient states: bilateral flank pain that radiates into abdomen on kb3 both sides, worse on the right side, since this morning. Denies N/V/D/fever. 12/30, sharp. Coronavirus screen: Vaccine status: Patient reports receiving the 1st dose of the Covid vaccine. Client denies travel out of the [place] in the last 14 days. Ebola Screen: Patient negative for fever greater than or equal to 101.5 degrees Fahrenheit, and additional compatible Ebola Virus Disease symptoms Patient denies exposure to infectious person. Patient denies travel to an Ebola-affected area in the 21 days before illness onset. No symptoms or risks identified at this time. Initial Sepsis Screen: Does the patient meet any 2 criteria? No. Patient's initial sepsis screen is negative. Does the patient have a suspected source of infection? No. Patient's initial sepsis screen is negative. Risk Assessment: Do you want to hurt yourself or someone else? Patient reports no desire to harm self or others. Onset of symptoms was October 21, 2022 at 08:00. 00:46 Method Of Arrival: Ambulatory kb3 00:46 Acuity: NIKI 3 kb3 Triage Assessment: 00:48 General: Appears in no apparent distress. Behavior is calm, cooperative. Pain: kb3 Complains of pain in left low back and right low back Pain radiates to right lower quadrant and left lower quadrant Pain currently is 7 out of 10 on a pain scale. Quality of pain is described as sharp, Pain began 1 day ago. Is continuous. GI: Patient currently denies constipation, diarrhea, nausea, vomiting. Historical: - Allergies: 00:48 No Known Allergies; kb3 - Home Meds: 00:48 None [Active]; kb3 - PMHx: 00:48 Hypertensive disorder; NIDDM; kb3 - PSHx: 00:48 None; kb3 - Immunization history:: Adult Immunizations up to date, Client reports receiving the 1st dose of the Covid vaccine, Last tetanus immunization: < 10 years ago. - Social history:: Smoking status: Patient reports the use of cigarette tobacco products, denies chronic smoking, but will smoke occasionally, Patient uses alcohol, occasionally. Patient/guardian denies using street drugs. Screenin:40 Abuse screen: Denies threats or abuse. Denies injuries from another. Nutritional ha1 screening: No deficits noted. Tuberculosis screening: No symptoms or risk factors identified. 00:40 [facility] ED Fall Risk Assessment (Adult) History of falling in the last 3 months, ha1 including since admission No falls in past 3 months (0 pts) Confusion or Disorientation No (0 pts) Intoxicated or Sedated No (0 pts) Impaired Gait No (0 pts) Mobility Assist Device Used No (0 pt) Altered Elimination No (0 pt) Score/Fall Risk Level 0 - 2 = Low Risk Oriented to surroundings, Maintained a safe environment, Educated pt \T\ family on fall prevention, incl call for assistance when getting out of bed. Assessment: 00:47 General: Appears uncomfortable, Behavior is calm, cooperative. Pain: Complains of pain ha1 in abdomen and back flank pain. 00:47 Neuro: Level of Consciousness is awake, alert, obeys commands, Oriented to person, ha1 place, time, situation. Cardiovascular: Capillary refill < 3 seconds Patient's skin is warm and dry. Respiratory: Airway is patent Respiratory effort is even, unlabored, Respiratory pattern is regular, symmetrical. GI: Abdomen is round non-distended, Bowel sounds present X 4 quads. Abd is soft and non tender X 4 quads. Reports lower abdominal pain. Musculoskeletal: Circulation, motion, and sensation intact. Range of motion: intact in all extremities, Reports pain in right low back. 01:40 Reassessment: Patient and/or family updated on plan of care and expected duration. Pain ha1 level reassessed. Patient is alert, oriented x 3, equal unlabored respirations, skin warm/dry/pink. 02:20 Reassessment: Patient and/or family updated on plan of care and expected duration. Pain ha1 level reassessed. Patient is alert, oriented x 3, equal unlabored respirations, skin warm/dry/pink. back from CT. 03:20 Reassessment: Patient and/or family updated on plan of care and expected duration. Pain ha1 level reassessed. Patient is alert, oriented x 3, equal unlabored respirations, skin warm/dry/pink. 04:20 Reassessment: Patient and/or family updated on plan of care and expected duration. Pain ha1 level reassessed. Patient is alert, oriented x 3, equal unlabored respirations, skin warm/dry/pink. Vital Signs: 00:46 BP 160 / 107; Pulse 89; Resp 18; Temp 97.8; Pulse Ox 98% ; Weight 98.43 kg; Height 6 kb3 ft. 0 in. ; Pain 7/10; 01:00 BP 137 / 81; Pulse 74; Resp 18 S; Pulse Ox 97% on R/A; ha1 02:00 BP 149 / 84; Pulse 73; Resp 15 S; Pulse Ox 96% on R/A; ha1 03:00 BP 127 / 69; Pulse 70; Resp 18 S; Pulse Ox 96% on R/A; ha1 04:00 BP 107 / 62; Pulse 72; Resp 18; Pulse Ox 96% on R/A; ha1 00:46 Body Mass Index 29.43 (98.43 kg, 182.88 cm) kb3 00:46 Pain Scale: Adult kb3 ED Course: 00:27 Patient arrived in ED. jj6 00:29 Amandeep Cisse PA is PHCP. jmm 00:29 Ryan Medina MD is Attending Physician. jmm 00:40 Patient has correct armband on for positive identification. Placed in gown. Bed in low ha1 position. Call light in reach. Side rails up X 1. 00:48 Triage completed. kb3 00:48 Arm band placed on right wrist. kb3 00:57 Lucia Adler, NICKIE is Primary Nurse. ha1 01:10 Inserted saline lock: 20 gauge in right forearm, using aseptic technique. Blood ha1 collected. 01:15 CBC with Diff Sent. ha1 01:15 CMP Sent. ha1 01:15 Lipase Sent. ha1 01:15 Urinalysis w/ reflexes Sent. ha1 02:28 CT Abd/Pelvis - IV Contrast Only In Process Unspecified. EDMS 04:28 No provider procedures requiring assistance completed. IV discontinued, intact, ha1 bleeding controlled, No redness/swelling at site. Pressure dressing applied. Administered Medications: 02:50 Drug: NS 0.9% IV 1000 ml Route: IV; Rate: 1 bolus; Site: right antecubital; ha1 04:25 Follow up: Response: No adverse reaction; IV Status: Completed infusion; IV Intake: ha1 1000ml Medication: 04:28 VIS not applicable for this client. ha1 Intake: 04:25 IV: 1000ml; Total: 1000ml. ha1 Outcome: 03:54 Discharge ordered by . rt 04:28 Discharged to home ambulatory. ha1 04:28 Condition: stable 04:28 Discharge instructions given to patient, Instructed on discharge instructions, follow up and referral plans. medication usage, Demonstrated understanding of instructions, follow-up care, medications, Prescriptions given X 2. 04:28 Patient left the ED. ha1 Signatures: Dispatcher [employer] EDMS Amandeep Cisse PA PA jmm Jeffries, Jennifer jj6 Lucia Adler RN RN ha1 Marielos Estrada RN RN kb3 Ryan Medina MD MD rt
[2022-10-22 04:34] VITALS: TEMP 97.8
[2022-10-22 04:38] VITALS: O2SAT 96
[2022-10-22 04:41] VITALS: BP 107/62
--- NOTE | 2022-10-22 11:59 | RAD REPORT ---
EXAM DESCRIPTION: CT - Abdomen Pelvis W Contrast - 10/22/2022 6:37 am CLINICAL HISTORY: ABD PAIN TECHNIQUE: Axial computed tomography images of the abdomen and pelvis with intravenous contrast. S agittal and coronal reformatted images were created and reviewed. This CT exam was performed using one or more of the following dose reduction techniques: automated exposure control, adjustment of t he mA and/or kV according to patient size, and/or use of iterative reconstruction technique. COMPARISON: CT Abdomen Pelvis dated 04/21/2017 FINDINGS: Lung bases: Patchy left basilar opacification. ABDOMEN: Liver: The liver is enlarged and diffusely low in density compatible with steatosis. Focal fatty sparing adjacent to the gallbladder fossa. Gallbladder and bile ducts: The gallbladder is contracted. No calcified stones. No ductal dilat ion. Pancreas: Unremarkable. No mass. No ductal dilation. Spleen: Unremarkable. No splenomegaly. Adrenals: Unremarkable. No mass. Kidneys and ureters: Unremarkable. No solid mass. No hydronephrosis. Stomach and bowel: Moderate stool. No bowel obstruction. No appreciable mucosal thickening. PELVIS: Appendix: Normal caliber appendix. No findings to suggest acute appendicitis. Bladder: Unremarkable. No mass. Reproductive: Unremarkable as visualized. ABDOMEN and PELVIS: Intraperitoneal space: Unremarkable. No free air. No significant fluid collection. Bones/joints: No acute fracture. No dislocation. Soft tissues: Unremarkable. Vasculature: Unremarkable. No abdominal aortic aneurysm. Lymph nodes: Unremarkable. No enlarged lymph nodes. IMPRESSION: 1. Moderate stool. No bowel obstruction. 2. Focal left basilar infiltrate. 3. Other findings as above. Electronically signed by: Mary Anne Mitchell MD 10/22/2022 3:41 AM CDT Due to temporary technical issues with the PACS/Fluency reporting system, reports are being signed by the in house radiologists without review as a courtesy to insure prompt reporting. The interpreting radiologist is fully responsible for the content of the report.
== END 2022-10-22 04:28 | disposition home or self-care (01) ==
LOC: ER 00:24
DX: J15.9 Unspecified bacterial pneumonia (principal); E11.65 Type 2 diabetes mellitus with hyperglycemia; I10 Essential (primary) hypertension; F17.210 Nicotine dependence, cigarettes, uncomplicated
CPT/HCPCS: 96361; 85025; 36415; 81003; 83690; 80053; 74177; 96360; 99284; Q9967; J7030

== ENCOUNTER 2023-06-03 23:57 | Emergency (ER) | payer BC ==
--- OUTSIDE RECORDS SUMMARY | 2023-06-04 00:01 | XMS REPORT | Continuity of Care Document ---
Author Name Unknown Address [address] [facility] [address] [place] [address] [facility] thconnect Address [address] [facility] [address] [place] [address] Care Team Providers Care Engineering Technical Analyst Name Role Phone PCP, PATIENT DOES NOT HAVE A Primary Care Physic carli Unavailable Genet Attending Clinician Unavaila Ny Lala Attending Clinician [phone] Znehaa_S Attending Clinician Unavailable VICTORIA SOLIS Attending Clinician Unavailable Victoria Randolph Attending Clinician Renae Ya Attending Clinician [phone] Cole_A Attending Clinician Unavailable Genet Admitting Clinician Unavaila getachew Lancea_S Admitting Clinician Unavailable VICTORIA SOLIS Admitting Clinician Unavailable Suleimanla_A Admitting Clinician Unavailable Payers Payer Name Policy Type Policy Number Effective Date Expirati on Date Source [place] [id number] 2020 00:00:00 [facility] [place] [facility] [place] [id number] 2020 00:00:00 Problems Condition Name Condition Details Condition Category Status Onset Date Resolution Date Last Treatment Date Treating Clinician Comments Source Pain of right shoulder joint Pain of Right Shoulder Joint Problem Active 02-11 00:00: 00 [facility] Pain of right shoulder joint Pain of Right Shoulder Joint Problem Active 02-04 00:00: 00 [facility] No known active problems No known active problems Disease [facility] Allergies, Adverse Reactions, Alerts Allergy Name Allergy Type Status Severity Reaction(s) Onset Date Inactive Date Treating Clinician Comments Source NO KNOWN ALLERGIE S Drug Class Active [facility] Social History Social Habit Start Date Stop Date Quantity Comments Source Exposure to SARS-CoV-2 (event) Not sure [facility] Sex Assigned At 1995 00:00:00 1995 00:00:00 [facility] Smoking Status Start Date Stop Date Source Never Smoker [facility] Former Smoker [facility] Unknown if ever smoked [facility] Medications Ordered Medication Name Filled Medication Name Start Date Stop Date Current Medication? Ordering Clinician Indication Dosage Frequency Signature (SIG) Comments Components Source dexamethaso ne sodium phosphate 10 mg/mL injection solutionTak e 1 mL by injection route. dexamethaso ne sodium phosphate 10 mg/mL injection solutionTak e 1 mL by injection route. 02-04 10:42: 00 No dexamethas one sodium phosphate 10 mg/mL injection solutionTa ke 1 mL by injection route. [facility] methylpredn isolone acetate 40 mg/mL suspension for injectionTa ke 1 mL by injection route. methylpredn isolone acetate 40 mg/mL suspension for injectionTa ke 1 mL by injection route. 02-04 10:42: 00 No methylpred nisolone acetate 40 mg/mL suspension for injectionT mikki 1 mL by injection route. [facility] benzonatate 100 mg capsule 2020-06 00:00: 00 Yes [id number] 100mg Take 1 capsule by mouth 3 (three) times daily as needed for Cough. [facility] oseltamivir 75 mg capsule 2020-06 2- 00:00: 00 06-18 05:59 :00 No [id number] 75mg Take 1 capsule by mouth 2 (two) times daily for 5 days. [facility] acetaminoph en-codeine (TYLENOL #3) 300-30 mg tablet 1 tablet 2020-06 0 01:00: 00 04-17 00:47 :00 No 1{tbl} 1 tablet, Oral, ONCE, 1 dose, On Fri04/16/21 at 2000, RANDY [facility] azithromyci n 250 mg tablet 2020-06 0 00:00: 00 Yes [id number] Take 500 mg day 1, then 250 mg days 2 to 5. [facility] albuterol 90 mcg/actuati on inhaler 2020-06 0 00:00: 00 Yes [id number] 2{puff} Inhale 2 Puffs every 4 (four) hours as needed for Wheezing or Shortness of Breath. [facility] azithromyci n 250 mg tablet 2020-06 0 00:00: 00 Yes [id number] Take 500 mg day 1, then 250 mg days 2 to 5. [facility] albuterol 90 mcg/actuati on inhaler 2020-06 0 00:00: 00 Yes [id number] 2{puff} Inhale 2 Puffs every 4 (four) hours as needed for Wheezing or Shortness of Breath. [facility] acetaminoph en-codeine 300-30 mg tablet 2020-06 0 00:00: 00 04-24 04:59 :00 No [id number] 1{tbl} Take 1 tablet by mouth every 6 (six) hours as needed for Pain (scale 7-10) for up to 7 days. Indication s: acute pain [facility] loperamide (IMODIUM A-D) capsule 4 mg 01-01 18:45: 00 01-01 17:44 :00 No 4mg 4 mg, Oral, ONCE NOW, 1 dose, Fri01/01/21 at 1345, RANDY [facility] NaCl 0.9% (NS) bolus infusion 2,000 mL 01-01 16:45: 00 01-01 19:52 :00 No 2000mL at 999 mL/hr, 2,000 mL, IV Infusion, ONCE, 1 dose, Fri01/01/21 at 1145, RANDY [facility] dicyclomine 20 mg tablet 01-01 00:00: 00 Yes [id number] 20mg Take 1 tablet by mouth 4 (four) times daily as needed for Abdominal pain. [facility] ondansetron (ZOFRAN ODT) 4 mg disintegrat ing tablet 01-01 00:00: 00 Yes [id number] 4mg Take 1 tablet by mouth every 8 (eight) hours as needed for Nausea and Vomiting (N/V). [facility] dicyclomine 20 mg tablet 01-01 00:00: 00 Yes [id number] 20mg Take 1 tablet by mouth 4 (four) times daily as needed for Abdominal pain. [facility] ondansetron (ZOFRAN ODT) 4 mg disintegrat ing tablet 01-01 00:00: 00 Yes [id number] 4mg Take 1 tablet by mouth every 8 (eight) hours as needed for Nausea and Vomiting (N/V). [facility] dicyclomine 20 mg tablet 01-01 00:00: 00 Yes [id number] 20mg Take 1 tablet by mouth 4 (four) times daily as needed for Abdominal pain. [facility] ondansetron (ZOFRAN ODT) 4 mg disintegrat ing tablet 01-01 00:00: 00 Yes [id number] 4mg Take 1 tablet by mouth every 8 (eight) hours as needed for Nausea and Vomiting (N/V). [facility] cyclobenzap rine 10 mg tablet cyclobenzap rine 10 mg tablet No cyclobenza kamilah 10 mg tablet [facility] diclofenac sodium 75 mg tablet,randal yed release diclofenac sodium 75 mg tablet,randal yed release No diclofenac sodium 75 mg tablet,del ayed release [facility] tramadol 50 mg tablet tramadol 50 mg tablet No tramadol 50 mg tablet [facility] cyclobenzap rine 10 mg tablet Take 1 tablet 3 times a day by oral route as needed. cyclobenzap rine 10 mg tablet Take 1 tablet 3 times a day by oral route as needed. No 1 TID cyclobenza kamilah 10 mg tablet Take 1 tablet 3 times a day by oral route as needed. [facility] dexamethaso ne sodium phosphate 10 mg/mL injection solution Take 1 mL by injection route. dexamethaso ne sodium phosphate 10 mg/mL injection solution Take 1 mL by injection route. No 1mL dexamethas one sodium phosphate 10 mg/mL injection solution Take 1 mL by injection route. [facility] diclofenac sodium 75 mg tablet,randal yed release Take 1 tablet twice a day by oral route for 10 days. diclofenac sodium 75 mg tablet,randal yed release Take 1 tablet twice a day by oral route for 10 days. No 1 BID diclofenac sodium 75 mg tablet,del ayed release Take 1 tablet twice a day by oral route for 10 days. [facility] lisinopril 5 mg tablet Take 2 tablets every day by oral route. lisinopril 5 mg tablet Take 2 tablets every day by oral route. No 2 Q1D lisinopril 5 mg tablet Take 2 tablets every day by oral route. [facility] metformin 500 mg tablet Take 1 tablet twice a day by oral route. metformin 500 mg tablet Take 1 tablet twice a day by oral route. No 1 BID metformin 500 mg tablet Take 1 tablet twice a day by oral route. [facility] methylpredn isolone acetate 40 mg/mL suspension for injection Take 1 mL by injection route. methylpredn isolone acetate 40 mg/mL suspension for injection Take 1 mL by injection route. No 1mL methylpred nisolone acetate 40 mg/mL suspension for injection Take 1 mL by injection route. [facility] tramadol 50 mg tablet Take 1 tablet every 6 hours by oral route as needed. tramadol 50 mg tablet Take 1 tablet every 6 hours by oral route as needed. No 1 Q6H tramadol 50 mg tablet Take 1 tablet every 6 hours by oral route as needed. [facility] Vital Signs Vital Name Observation Time Observation Value Comments Nakul nair Height 2022-02-12 00:00:00 72 [in_i] [facility] BMI (Body Mass Index) 2022-02-12 00:00:00 31.2 kg/m2 [facility] Body Weight 2022-02-12 00:00:00 230 [lb_av] [facility] BP Diastolic 2022-02-04 00:00:00 78 mm[Hg] [facility] Height 2022-02-04 00:00:00 72 [in_i] [facility] BMI (Body Mass Index) 2022-02-04 00:00:00 32.4 kg/m2 [facility] BP Systolic 2022-02-04 00:00:00 122 mm[Hg] [facility] Body Weight 2022-02-04 00:00:00 3824 [oz_av] [facility] Systolic blood pressure 2021-06-13 03:00:00 135 mm[Hg] [facility] Diastolic blood pressure 2021-06-13 03:00:00 87 mm[Hg] [facility] Body temperature 2021-06-13 03:00:00 37.22 Michell [facility] Respiratory rate 2021-06-13 03:00:00 19 /min [facility] Oxygen saturation in Arterial blood by Pulse oximetry 2021-06-13 03:00:00 98 /min [facility] Heart rate 2021-06-13 02:41:00 118 /min [facility] 2021-06-13 02:41:00 182.9 cm [facility] weight 2021-06-13 02:41:[address] [facility] BMI 2021-06-13 02:41:00 30.69 kg/m2 [facility] Systolic blood pressure 2021-04-16 23:35:00 147 mm[Hg] [facility] Diastolic blood pressure 2021-04-16 23:35:00 86 mm[Hg] [facility] Heart rate 2021-04-16 23:35:00 103 /min Unive [facility] Body temperature 2021-04-16 23:35:00 37.33 Michell [facility] Respiratory rate 2021-04-16 23:35:00 18 /min [facility] Body height 2021-04-16 23:35:[address] [facility] Body weight 2021-04-16 23:35:[address] [facility] BMI 2021-04-16 23:35:00 27.27 kg/m2 [facility] Oxygen saturation in Arterial blood by Pulse oximetry 2021-04-16 23:35:00 99 /min [facility] Systolic blood pressure 2021-01-01 18:00:00 146 mm[Hg] [facility] Diastolic blood pressure 2021-01-01 18:00:00 89 mm[Hg] [facility] Heart rate 2021-01-01 18:00:00 86 /min Unive [facility] Respiratory rate 2021-01-01 18:00:00 28 /min [facility] Oxygen saturation in Arterial blood by Pulse oximetry 2021-01-01 18:00:00 95 /min [facility] Body temperature 2021-01-01 16:32:05 37.17 Michell [facility] Body height 2021-01-01 16:29:[address] [facility] Body weight 2021-01-01 16:29:[address] [facility] BMI 2021-01-01 16:29:00 33.19 kg/m2 [facility] Body Weight 2020-09-15 00:00:00 3856 [oz_av] [facility] BP Diastolic 2020-09-15 00:00:00 105 mm[Hg] [facility] Height 2020-09-15 00:00:00 72 [in_i] [facility] BMI (Body Mass Index) 2020-09-15 00:00:00 32.7 kg/m2 [facility] BP Systolic 2020-09-15 00:00:00 172 mm[Hg] [facility] Procedures Procedure Date / Time Performed Performing Clinicia n Source MRI, shoulder, w/o contrast 2022-02-12 00:00:00 [facility] XR, shoulder, 2 or more view 2022-02-04 00:00:00 [facility] XR CHEST 2 VW 2021-06-13 03:18:[address] [facility] RAPID INFLUENZA A/B 2021-06-13 03:00:00 Victoria Solis [facility] COVID-19 (ID NOW RAPID TESTING) 2021-06-13 03:00:00 Victoria Solis [facility] NOTICE OF PRIVACY PRACTICES 2021-06-13 02:26:52 Doctor Unassigned, [place] [facility] CONSENT/REFUSAL FOR DIAGNOSIS AND TREATMENT 2021-06-13 02:25:07 Doctor Unassigned, [place] [facility] COVID-19 (ID NOW RAPID TESTING) 2021-04-17 01:13:00 Victoria Solis [facility] XR CHEST 2 VW 2021-04-17 00:10:[address] [facility] XR RIBS 3 VW LEFT 2021-04-17 00:10:40 Victoria Solis [facility] NOTICE OF PRIVACY PRACTICES 2021-04-16 23:29:08 Doctor Unassigned, [place] [facility] CONSENT/REFUSAL FOR DIAGNOSIS AND TREATMENT 2021-04-16 23:28:45 Doctor Unassigned, [place] [facility] XR ABDOMEN ACUTE SERIES 2021-01-01 18:38:28 Renae Romero [facility] URINALYSIS 2021-01-01 17:09:[address] [facility] LIPASE 2021-01-01 16:45:[address] [facility] HEPATIC FUNCTION PANEL (34778) (ALB,T.PRO,BILI T,BU/BC,ALT,AST,ALK PHOS) 2021-01-01 16:45:00 Renae Romero [facility] BASIC METABOLIC PANEL (NA, K, CL, CO2, GLUCOSE, BUN, CREATININE, CA) 2021-01-01 16:45:00 Renae Romero [facility] CBC WITH DIFF 2021-01-01 16:45:00 Renae Romero [facility] NOTICE OF PRIVACY PRACTICES 2021-01-01 16:19:45 Doctor Unassigned, [place] [facility] CONSENT/REFUSAL FOR DIAGNOSIS AND TREATMENT 2021-01-01 16:17:52 Doctor Unassigned, [place] [facility] Encounters Start Date/Time End Date/Time Encounter Type Admission Type Attending [facility] Care Facility Care Department Encounter ID Source 2022-02-12 00:00:00 2022-02-12 00:00:00 Outpatient Bon Castro AO AO [id number] [facility] 2022-02-12 00:00:00 2022-02-12 00:00:00 Outpatient Ny Cornell AOCODY AO [id number] 2022-02-12 00:00:00 2022-02-12 00:00:00 CARA Davis: [id number] [facility] [place] [address] , Ph. [phone] [facility] [place] [facility] [place] [facility] [place] [id number] [facility] 2022-02-07 00:00:00 2022-02-07 00:00:00 Outpatient Bon Castro AO AO [id number] [facility] 2022-02-04 00:00:00 2022-02-04 00:00:00 Outpatient Scott HOFFMANN [facility] [id number] 2022-02-04 00:00:00 2022-02-04 00:00:00 KIM Mendez-C: [address] [address] , Ph. [facility] [id number] [facility] 2021-06-12 20:43:00 2021-06-12 21:47:00 Emergency X VICTORIA SOLIS [email or web address] ERT [id number] [facility] 2021-06-12 20:43:00 2021-06-12 21:47:00 Emergency Victoria Solis [facility] [id number] [facility] 2021-04-16 18:37:00 2021-04-16 22:30:00 Emergency X VICTORIA SOLIS [facility] [[email or web address]] ERT [id number] [facility] 2021-04-16 18:37:00 2021-04-16 22:30:00 Emergency Victoria Solis [facility] [id number] [facility] 2021-01-01 11:30:00 2021-01-01 14:53:00 Emergency Renae Romero [facility] [id number] [facility] 2021-01-01 11:14:00 2021-01-01 11:14:00 Emergency X [facility] [[email or web address]] ERT [id number] [facility] 2020-09-15 08:18:00 2020-09-15 08:18:00 Outpatient Koudela_A [facility] [id number] [facility] 2020-09-15 08:18:00 2020-09-15 08:18:00 Outpatient Koudela_A [facility] [id number] [facility] 2020-09-15 00:00:00 2020-09-15 00:00:00 Sara Galvan PA-C: [address] [facility] [address], [place] [address] , Ph. G [place] - [facility] [id number] [facility] Results Test Description Test Time Test Comments Results Resul t Comments Source Acute Abdomen Series 2020-12-21 2 19:11:32 Mildly dilated short segment of small bowel without [...] likelysequela of diarrhea. No bowel obstruction.Clear lungs. [facility] (ALB, T.PRO, BILI T, BU/BC, ALT, AST, ALK PHOS)2021-01-01 17:16:40* Test Item Value Reference Range Interpretation Comme nts TOTAL BILI (test code = 3336536144) 0.7 mg/dL 0.1-1.1 BILI UNCON (test code = 6465680651) 0.4 mg/dL 0.1-1.1 BILI CONJ (test code = 1654160410) 0.0 mg/dL 0.0-0.3 T PROTEIN (test code = 7097787078) 8.0 g/dL 6.3-8.2 ALBUMIN (test code = 9504236130) 4.7 g/dL 3.5-5.0 ALK PHOS (test code = 1986828354) 127 U/L 34-122 H ALTv (test code = 1742-6) 122 U/L 5-50 H AST(SGOT) (test code = 7190489892) 58 U/L 13-40 H Lab Interpretation (test cod e = 22927-0) Abnormal [facility] Metabolic Panel (NA, K, CL, CO2, GLUCOSE, BUN, CREATININE, CA)2021-01-01 17:16:22* Test Item Value Reference Range Interpretation Comme nts NA (test code = 8853883593) 135 mmol/L 135-145 K (test code = 5872709666) 3.8 mmol/L 3.5-5.0 CL (test code = 2520530646) 102 mmol/L 98-108 CO2 TOTAL (test code = 2131218303) 21 mmol/L 23-31 L AGAP (test code = 0489021691) 2-16 BUN (test code = 6979023311) 18 mg/dL 7-23 GLUCOSE (test code = 2740550658) 231 mg/dL 70-110 H CREATININE (test code = 8424259990) 0.69 mg/dL 0.60-1.25 CALCIUM (test code = 0100586428) 8.8 mg/dL 8.6-10.6 eGFR (test code = 5291925773) mL/min/1.73m2 ALESSANDRA (test code = ALESSANDRA) Association of [...] or abnormalities in imaging tests). Lab Interpretation (test code = 32696-3) Abnormal [facility] [id number] 17:16:22* Test Item Value Reference Range Interpretation Comme nts LIPASE (test code = 7158231578) 51 U/L 0-220 Lab Interpretation (test cod e = 63913-1) Normal [facility] with [id number] 17:00:57* Test Item Value Reference Range Interpretation Comme nts WBC (test code = 6690-2) See_Comment [Automated [employer]] The system which generated this result transmitted reference range: 4.20 - 10.70 10*3/?L. The reference range was not used to interpret this result as normal/abnormal. RBC (test code = 789-8) See_Comment [Automated [employer]] The system which generated this result transmitted reference range: 4.26 - 5.52 10*6/?L. The reference range was not used to interpret this result as normal/abnormal. HGB (test code = 718-7) 15.7 g/dL 12.2-16.4 HCT (test code = 4544-3) 46.4 % 38.4-49.3 MCV (test code = 787-2) 91.5 fL 81.7-95.6 MCH (test code = 785-6) 31.0 pg 26.1-32.7 MCHC (test code = 786-4) 33.8 g/dL 31.2-35.0 RDW-SD (test code = 47680-9) 41.8 fL 38.5-51.6 RDW-CV (test code = 788-0) 12.5 % 12.1-15.4 PLT (test code = 777-3) See_Comment [Automated messa ge] The system which generated this result transmitted reference range: 150 - 328 10*3/?L. The reference range was not used to interpret this result as normal/abnormal. MPV (test code = 17218-0) 9.9 fL 9.8-13.0 NRBC/100 WBC (test code = 1412155933) See_Comment [Automated [employer] ssage] The system which generated this result transmitted reference range: 0.0 - 10.0 /100 WBCs. The reference range was not used to interpret this result as normal/abnormal. NRBC x10^3 (test code = 1352155542) <0.01 See_Comment [Automated [employer]] The system which generated this result transmitted reference range: 10*3/?L. The reference range was not used to interpret this result as normal/abnormal. GRAN MAT (NEUT) % (test code = 770-8) 70.1 % IMM GRAN % (test code = 8172359629) 0.30 % LYMPH % (test code = 736-9) 19.6 % MONO % (test code = 5905-5) 8.9 % EOS % (test code = 713-8) 0.8 % BASO % (test code = 706-2) 0.3 % GRAN MAT x10^3(ANC) (test code = 1520886430) 4.55 10*3/uL 1.99-6.95 IMM GRAN x10^3 (test code = 6590752580) <0.03 0.00-0.06 LYMPH x10^3 (test code = 731-0) 1.27 10*3/uL 1.09-3.23 MONO x10^3 (test code = 742-7) 0.58 10*3/uL 0.36-1.02 EOS x10^3 (test code = 711-2) 0.05 10*3/uL 0.06-0.53 L BASO x10^3 (test code = 704-7) <0.03 0.01-0.09 Lab Interpretation (test code = 54197-3) Abnormal [facility]"
[2023-06-04] MEDS ORDERED: HYDROCODONE/CHLORPHEN 5 ML/OSYR ONE (00:24)
[2023-06-04 01:45] LABS: SARS-COV-2 RT PCR NEGATIVE (NEGATIVE)
--- NOTE | 2023-06-04 02:09 | ER ---
Nurse's Notes [facility] Name: Kiel Govea Age: 28 yrs Sex: Male : 1995 Arrival Date: 06/03/2023 Time: 23:57 Bed 16 Private MD: Diagnosis: Other specified viral diseases;Acute influenza B Presentation: 06/04 00:04 Chief complaint: Patient states: I am having cough, congestion, SOB, and fever that jb4 started on Friday. I have been managing it with Dayquil and tonight I got into a coughing fit and couldn't catch my breath and decided to come get checked out. Coronavirus screen: Client presents with at least one sign or symptom that may indicate coronavirus-19. Provider contacted for isolation considerations. Ebola Screen: No symptoms or risks identified at this time. Resp Distress? No respiratory distress is noted at this time. Initial Sepsis Screen: Does the patient meet any 2 criteria? No. Patient's initial sepsis screen is negative. Does the patient have a suspected source of infection? No. Patient's initial sepsis screen is negative. Risk Assessment: Do you want to hurt yourself or someone else? Patient reports no desire to harm self or others. Onset of symptoms was June 04, 2023. Transition of care: patient was not received from another setting of care. 00:04 Method Of Arrival: Ambulatory jb4 00:04 Acuity: NIKI 4 jb4 Historical: - Allergies: 00:06 Bees; jb4 - PMHx: 00:06 Hypertensive disorder; NIDDM; jb4 - PSHx: 00:06 None; jb4 - Immunization history:: Adult Immunizations unknown. - Social history:: Smoking status: Patient reports the use of cigarette tobacco products, denies chronic smoking, but will smoke occasionally. Screenin:12 [facility] ED Fall Risk Assessment (Adult) History of falling in the last 3 months, tm6 including since admission No falls in past 3 months (0 pts). Abuse screen: Denies threats or abuse. Denies injuries from another. Nutritional screening: No deficits noted. Tuberculosis screening: No symptoms or risk factors identified. Assessment: 00:12 General: Appears in no apparent distress. Behavior is calm, cooperative. Pain: Denies tm6 pain. Neuro: Level of Consciousness is awake, alert, obeys commands, Oriented to person, place, time, situation. Cardiovascular: Capillary refill < 3 seconds Patient's skin is warm and dry. Respiratory: Airway is patent Respiratory effort is even, unlabored, Respiratory pattern is regular, symmetrical, Onset: The symptoms/episode began/occurred Friday, the patient has mild shortness of breath Parent/caregiver reports the patient having shortness of breath on exertion cough that is non-productive. Respiratory: Parent/caregiver reports the patient having congestion. GI: Abdomen is round non-distended. : No signs and/or symptoms were reported regarding the genitourinary system. EENT: No signs and/or symptoms were reported regarding the EENT system. Derm: No signs and/or symptoms reported regarding the dermatologic system. Musculoskeletal: No signs and/or symptoms reported regarding the musculoskeletal system. 00:17 Respiratory: Breath sounds are clear bilaterally. tm6 00:48 Reassessment: Patient appears in no apparent distress at this time. Patient and/or tm6 family updated on plan of care and expected duration. Pain level reassessed. Patient is alert, oriented x 3, equal unlabored respirations, skin warm/dry/pink. 01:43 Reassessment: No changes from previously documented assessment. tm6 Vital Signs: 00:08 BP 159 / 95; Pulse 97; Resp 16; Temp 98.1(O); Pulse Ox 98% ; Pain 0/10; tm6 00:48 BP 136 / 76; Pulse 97; Pulse Ox 96% on R/A; Pain 0/10; tm6 01:43 BP 146 / 97; Pulse 99; Pulse Ox 93% on R/A; pf1 02:05 BP 139 / 88; Pulse 100; Resp 18; Pulse Ox 97% on R/A; pf1 02:07 Weight 104.33 kg; Height 6 ft. 0 in. ; tm6 02:07 Body Mass Index 31.19 (104.33 kg, 182.88 cm) tm6 00:08 Pain Scale: Adult tm6 00:48 Pain Scale: Adult tm6 ED Course: 00:00 Patient arrived in ED. gm2 00:02 [facility]C [facility] kb 00:02 Michele Reed MD is Attending Physician. kb 00:06 Triage completed. jb4 00:06 Arm band placed on right wrist. jb4 00:08 Aleksey Carranza, RN is Primary Nurse. tm6 00:12 Patient has correct armband on for positive identification. Bed in low position. Call tm6 light in reach. Provided Education on: plan of care. Client placed on continuous cardiac and pulse oximetry monitoring. NIBP monitoring applied. Door closed. Noise minimized. Warm blanket given. 00:12 No provider procedures requiring assistance completed. tm6 00:14 COVID-19/FLU A+B/RSV Sent. pf1 02:22 Patient did not have IV access during this emergency room visit. tm6 Administered Medications: 00:10 Drug: Tussionex Pennkinetic ER PO Suspension 5 ml PO once Route: PO; pf1 02:15 CANCELLED (not in the pyxiss): [id number] mg PO once pf1 02:16 Drug: Acetaminophen-Codeine PO (300 mg-30 mg) 2 tabs PO once; RASS on ADMIN: Combtv4, tm6 Very Agttd3, Agttd2, Rstlss1, AlertClm0, Drwsy-1, Lt Sdtn-2, Mod Sdtn-3, Dp Sdtn-4, UnArsble-5 Route: PO; Medication: 00:12 VIS not applicable for this client. tm6 Outcome: 02:08 Discharge ordered by . sp4 02:22 Discharged to home ambulatory, with family, tm6 02:22 Condition: stable 02:22 Discharge instructions given to patient, family, Instructed on discharge instructions, follow up and referral plans. medication usage, Demonstrated understanding of instructions, follow-up care, medications, Prescriptions given X 3, 02:22 Patient left the ED. tm6 Signatures: Valeria Gallo, BOILER/CHILLER OPERATOR-C BOILER/CHILLER OPERATOR-CkTobin Moreno, RN RN jb4 Yuli Luna RN RN pf1 Michele Reed MD MD sp4 Katerine Friedman 2 Aleksey Carranza, RN RN tm6 Corrections: (The following items were deleted from the chart) 01:57 01:43 BP 146 / 97; Pulse 99bpm; Pulse Ox 92% RA; tm6 pf1
--- NOTE | 2023-06-04 02:09 | EDPHYS ---
Physician Documentation [facility] Name: Kiel Govea Age: 28 yrs Sex: Male : 1995 Arrival Date: 06/03/2023 Time: 23:57 Bed 16 Private MD: ED Physician Michele Reed HPI: 06/04 00:12 This 28 yrs old Male presents to ER via Ambulatory with complaints of kb Congestion, Cough, Fever, Shortness Of Breath. 00:12 Pt is a 28 year old male who presents with cough, congestion, bodyaches, chills, fever kb that started 3 days ago. 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 Historical: - Allergies: 00:06 Bees; jb4 - PMHx: 00:06 Hypertensive disorder; NIDDM; jb4 - PSHx: 00:06 None; jb4 - Immunization history:: Adult Immunizations unknown. - Social history:: Smoking status: Patient reports the use of cigarette tobacco products, denies chronic smoking, but will smoke occasionally. ROS: 00:11 Abdomen/GI: Negative for abdominal pain, nausea, vomiting, diarrhea, and constipation, kb 00:11 Constitutional: Positive for body aches, chills, fatigue, fever, malaise, 00:11 ENT: Positive for rhinorrhea, sinus congestion, 00:11 Respiratory: Positive for cough, shortness of breath, 00:11 All other systems are negative, Exam: 00:11 Constitutional: This is a well developed, well nourished patient who is awake, alert, kb and in no acute distress. Head/Face: Normocephalic, atraumatic. ENT: Moist Mucous membranes Cardiovascular: Regular rate Respiratory: Respirations even and unlabored. No increased work of breathing. Talking in full sentences Abdomen/GI: Soft, non-tender. No distention Skin: Warm, dry with normal turgor. Normal color. MS/ Extremity: Pulses equal, no cyanosis. Neurovascular intact. Full, normal range of motion. Neuro: Awake and alert, GCS 15, oriented to person, place, time, and situation. Moves all extremities. Normal gait. Vital Signs: 00:08 BP 159 / 95; Pulse 97; Resp 16; Temp 98.1(O); Pulse Ox 98% ; Pain 0/10; tm6 00:48 BP 136 / 76; Pulse 97; Pulse Ox 96% on R/A; Pain 0/10; tm6 01:43 BP 146 / 97; Pulse 99; Pulse Ox 93% on R/A; pf1 02:05 BP 139 / 88; Pulse 100; Resp 18; Pulse Ox 97% on R/A; pf1 02:07 Weight 104.33 kg; Height 6 ft. 0 in. ; tm6 02:07 Body Mass Index 31.19 (104.33 kg, 182.88 cm) tm6 00:08 Pain Scale: Adult tm6 00:48 Pain Scale: Adult tm6 MDM: 00:02 Patient medically screened. kb 00:11 Differential diagnosis: flu, covid, rsv, uri, pneumonia. Data reviewed: vital signs, kb nurses notes. Test considered but Not performed: X-ray: chest x-ray considered, but lungs clear bilaterally, resp even and unlabored. 00:57 Transition of care: After a detail discussion of the patient's case, care is kb transferred to Michele Reed MD. 02:06 Differential Diagnosis: Bronchitis Influenza Upper Respiratory Infection Sinusitis. sp4 Data reviewed: lab test result(s), Flu: positive. ED course: Patient is positive for influenza B. Will provide oseltamivir, and ondansetron as needed for nausea. Advise [id number] ibuprofen, Tylenol, dextromethorphan guaifenesin combination. 06/04 00:05 Order name: COVID-19/FLU A+B/RSV; Complete Time: 02:01 kb Administered Medications: 00:10 Drug: Tussionex Pennkinetic ER PO Suspension 5 ml PO once Route: PO; pf1 02:15 CANCELLED (not in the pyxiss): [id number] mg PO once pf1 02:16 Drug: Acetaminophen-Codeine PO (300 mg-30 mg) 2 tabs PO once; RASS on ADMIN: Combtv4, tm6 Very Agttd3, Agttd2, Rstlss1, AlertClm0, Drwsy-1, Lt Sdtn-2, Mod Sdtn-3, Dp Sdtn-4, UnArsble-5 Route: PO; Disposition: 02:10 Co-signature as Attending Physician, Michele Reed MD I agree with the assessment sp4 and plan of care. I reviewed the patient's care provided by Advanced Practice Provider \T\ agree w/ the diagnosis \T\ care plan. I personally saw the pt \T\ performed a substantive portion of the visit, incldng all aspects of the (History/Exam/Medical Decision Making). Disposition Summary: 06/04/23 02:08 Discharge Ordered Problem: new sp4 Symptoms: have improved sp4 Condition: Stable sp4 Diagnosis - Other specified viral diseases sp4 - Acute influenza B sp4 Followup: kb - With: Emergency Department - When: As needed - Reason: Worsening of condition Followup: kb - With: Private Physician - When: 2 - 3 days - Reason: Recheck today's complaints, Continuance of care, Re-evaluation by your physician Discharge Instructions: - Discharge Summary Sheet sp4 - Influenza, Adult, [id number] sp4 Forms: - Patient Portal Instructions sp4 - Work release form tm6 Prescriptions: - oseltamivir 75 mg Oral capsule - take 1 capsule ORAL route every 12 hours for 5 days; 10 capsule; Refills: 0, sp4 Product Selection Permitted - ondansetron 8 mg Oral Tablet,disintegrating - take 1 tablet ORAL route every 6 hours PRN nausea; 30 tablet; Refills: 0, sp4 Product Selection Permitted Signatures: Dispatcher [employer] Valeria Almeida, ELIGIBILITY WORKER-C ELIGIBILITY WORKER-Tobin Brown RN RN jb4 Yuli Luna RN RN pf1 Michele Reed MD MD sp4 Aleksey Carranza RN RN tm6 Corrections: (The following items were deleted from the chart) 00:13 00:12 Pt is a 28 year old male who presents with cough, congestion, bodyaches, chills, kb fever that started 3 days ago. kb 02:15 02:06 Ketorolac PO 10 mg PO once ordered. sp4 pf1 02:15 02:15 Ketorolac PO 10 mg PO once ordered. pf1 pf1
[2023-06-04] MEDS ORDERED: CODEINE 30MG/APAP 300MG TAB ONE (02:29)
[2023-06-04 03:14] VITALS: TEMP 98.1
[2023-06-04 03:19] VITALS: BP 139/88; O2SAT 97
== END 2023-06-04 02:22 | disposition home or self-care (01) ==
LOC: ER 23:57
DX: J10.1 Influenza due to other identified influenza virus with other respiratory manifestations (principal); B33.8 Other specified viral diseases; Z11.52 Encounter for screening for COVID-19
CPT/HCPCS: 0241U